=== PATIENT | female | born 1990 | race Caucasian/White ===

== ENCOUNTER 2021-05-05 14:20 | Emergency (ER) | payer OTHER, MEDICAID, SELFPAY ==
[2021-05-05] VITALS (10 sets, daily range): BP systolic 112–131; BP diastolic 63–77; PULSE 89–117; RESP 13–24; TEMP 37.2–39.2; O2SAT 98–100; BMI 23.0
--- NOTE | 2021-05-05 14:56 | DI.RAD.S_ITS ---
PROCEDURE: XR CHEST 1V INDICATIONS: suspected sepsis TECHNIQUE: One view of the chest was acquired. COMPARISON: None. FINDINGS: Surgical changes and devices: None. Lungs and pleura: Lungs are clear. No pleural effusions or pneumothorax. Mediastinum: Mediastinal contours appear normal. Heart size is normal. Bones and chest wall: No suspicious bony lesions. Overlying soft tissues appear unremarkable. IMPRESSION: No acute cardiopulmonary disease process. Dictated by: Melony Szymanski MD, PhD on 05/05/2021 at 15:28 Approved by: Melony Szymanski MD, PhD on 05/05/2021 at 15:28
[2021-05-05 15:29] LABS: Bacteria Urine Many (>30); RBC Urine 5-10/HPF (0-5/HPF); WBC Urine >100/HPF (0-5/HPF)
[2021-05-05 15:30] LABS: Culture Indicated Urine Specimen Cultured
[2021-05-05 15:31] LABS: Add Manual Diff / Slide Review NO; Basophils Absolute Auto 0 /uL (0-100); Basophils Percent Auto 0.1 % (0-2); Eosinophils Absolute Auto 0 /uL (0-450); Hematocrit 38.8 % (36-46); Hemoglobin 12.8 g/dL (12.0-16.0); Lymphocytes Absolute Auto 700 /uL (1100-4500); Lymphocytes Percent Auto 3.1 % (25-40); Mean Corpuscular HGB Conc 33.1 % (30-36); Mean Corpuscular Volume 84.5 fL (80-100); Monocytes Absolute Auto 800 /uL (0-900); Monocytes Percent Auto 3.6 % (3-14); Neutrophils Absolute Auto 19400 /uL (1500-7000); Neutrophils Percent Auto 93.2 % (50-75); Platelet Count 247 X10^3/uL (150-400); Red Blood Cell Count 4.59 X10^6/uL (4.0-5.2); Red Cell Distribution Width 13.2 % (11.6-14.8); White Blood Cell Count 20.9 X10^3/uL (4.5-11.0)
[2021-05-05 15:39] LABS: Alanine Aminotransferase 51 IU/L (<35); Albumin 4.6 g/dL (3.5-5.0); Albumin Globulin Ratio 1.4 (1.0-2.8); Alkaline Phosphatase 182 U/L (38-126); Aspartate Aminotransferase 70 IU/L (14-36); BUN Creatinine Ratio 13.1 (6-22); Bilirubin Total 0.9 mg/dL (0.2-1.3); Blood Urea Nitrogen 8 mg/dL (7-17); Calcium 9.3 mg/dL (8.4-10.2); Carbon Dioxide 25 mmol/L (22-32); Chloride 99 mmol/L (98-107); Estimated Glomerular Filt Rate > 60.0 mL/min (>60); Globulin 3.4 g/dL (1.7-4.1); Glucose 105 mg/dL (70-100); HEMOLYSIS < 15 (0-50); Lipase 27 U/L (23-300); Potassium 3.8 mmol/L (3.4-5.1); Sodium 133 mmol/L (137-145)
[2021-05-05 15:40] LABS: Lactate (Lactic Acid) 1.1 mmol/L (0.7-2.1)
[2021-05-05] MEDS: SODIUM CHLORIDE 0.9% 1,000 ML 1000 ML IV ×2 (15:40→17:09)
[2021-05-05] MEDS: ONDANSETRON 4 MG/2 ML INJ IV (15:57)
[2021-05-05 16:15] LABS: COVID19 -Nasal RAPID Negative (Negative)
--- NOTE | 2021-05-05 16:54 | ED.GENADULT ---
HPI - General Adult General Chief complaint: Abdominal Pain Stated complaint: abd pain x2days Time Seen by Provider: 05/05/21 15:30 Source: patient Mode of arrival: Ambulatory Limitations: no limitations History of Present Illness HPI narrative: 31-year-old woman with history of IV drug use complains of 48 hours of severe right lower quadrant pain as well as migraine that is been present all day. She has a history of chronic migraine. She notes that she has not had any abdominal surgery she is having severe right flank pain without dysuria. She has been having fevers and chills. Vomiting but no diarrhea. Headache consistent with migraine along with visual changes that she is so cm with her typical migraine. She describes no cough or palpitations. She has been more fatigued and generally feels unwell. Related Data Home Medications Medication Instructions Recorded Confirmed dextroamphetamine-amphetamine ER 60 mg PO QDAY #0 11/23/12 30 mg 24hr capsule,extend release (Adderall XR) clonazepam 0.5 mg tablet (Klonopin) 1 mg #0 06/06/13 Previous Rx's Medication Instructions Recorded amoxicillin 875 mg-potassium 1 tab PO BID #20 tab 05/05/21 clavulanate 125 mg tablet (Augmentin) Allergies Allergy/AdvReac Type Severity Reaction Status Date / Time No Known Drug Allergies Allergy Verified 05/05/21 14:42 Review of Systems Review of Systems Narrative: Remainder of complete review of systems is otherwise unremarkable except for that included in the HPI. Patient History Medical History IV drug user Pyelonephritis Social History Smoking Status: Current every day smoker Smoking Status: Current every day smoker tobacco type: vaping Substance Use Type: marijuana and heroin Exam Narrative Exam Narrative: General: Fatigued and acutely ill appearing but Able to give a complete and coherent history. HEENT: Moist mucous membranes, normal sclera with reactive pupils, Neck: No JVD, supple Respiratory: Lungs are clear to auscultation, no wheezing no rales no rhonchi. Full and symmetrical air movement Cardiac: Tachycardic but regular rate and rhythm no murmurs no bruits Abdomen: Soft, nontender, good bowel tones, significant right flank pain Skin: Pale, track joshi appreciated on arms no evidence of abscesses cellulitis or significant skin breakdown Neurologic: Grossly neurologically intact with no obvious asymmetries or abnormalities Extremities: No trauma, well perfused Psych: Cooperative, appropriate insight and affect Initial Vital Signs Initial Vital Signs: Vital Signs Temperature 102.5 F H 05/05/21 14:42 Pulse Rate 117 H 05/05/21 14:42 Respiratory Rate 20 05/05/21 14:42 Blood Pressure 124/77 05/05/21 14:42 Pulse Oximetry 98 05/05/21 14:42 Course Orders Ordered: ED Orders 05/05/21 14:56 XR chest 1V Stat EKG-12 Lead Stat 05/05/21 14:58 Urine Culture Stat Urine Microscopic Stat 05/05/21 15:24 Complete Blood Count AUTO DIFF Stat Comprehensive Metabolic Panel Stat Lactate (Lactic Acid) Stat Lipase Stat Procalcitonin Stat 05/05/21 15:47 Blood Culture Stat 05/05/21 15:58 COVID19 -Nasal swab/Pre-Proc Stat Hydromorphone HCl (Hydromorphone 1 Mg Inj) 1 mg IV NOW ONE Stop: 05/05/21 18:32 Discontinued Medications Acetaminophen (Acetaminophen 325 Mg Tablet) 975 mg PO NOW ONE Stop: 05/05/21 16:56 Last Admin: 05/05/21 17:09 Dose: 975 mg Documented by: BREANN Hydromorphone HCl (Hydromorphone 1 Mg Inj) 1 mg IV NOW ONE Stop: 05/05/21 17:07 Last Admin: 05/05/21 17:10 Dose: 1 mg Documented by: BREANN Sodium Chloride (Normal Saline 0.9%) 1,000 mls @ 1,000 mls/hr IV BOLUS ONE Stop: 05/05/21 15:55 Last Infusion: 05/05/21 17:09 Dose: 0 mls/hr Documented by: Admin: 05/05/21 15:40 Dose: 1,000 mls/hr Documented by: BREANN Sodium Chloride (Normal Saline 0.9%) 1,000 mls @ 1,000 mls/hr IV BOLUS ONE Stop: 05/05/21 17:54 Last Admin: 05/05/21 17:09 Dose: 1,000 mls/hr Documented by: BREANN Ceftriaxone Sodium 2,000 mg/ (Sodium Chloride) 100 mls @ 200 mls/hr IV NOW ONE Stop: 05/05/21 16:56 Last Infusion: 05/05/21 17:55 Dose: 0 mls/hr Documented by: Admin: 05/05/21 17:10 Dose: 200 mls/hr Documented by: BREANN Ketorolac Tromethamine (Ketorolac 30 Mg/Ml Vial) 15 mg IV NOW ONE Stop: 05/05/21 16:56 Last Admin: 05/05/21 17:10 Dose: 15 mg Documented by: BREANN Metoclopramide HCl (Metoclopramide 10 Mg/2 Ml Inj) 10 mg IV NOW ONE Stop: 05/05/21 16:56 Last Admin: 05/05/21 17:10 Dose: 10 mg Documented by: BREANN Ondansetron HCl (Ondansetron 4 Mg/2 Ml Inj) 4 mg IV NOW ONE Stop: 05/05/21 15:54 Last Admin: 05/05/21 15:57 Dose: 4 mg Documented by: BREANN Vital Signs Vital signs: Vital Signs - 8 hr 05/05/21 14:42 05/05/21 15:49 05/05/21 15:52 Temperature 102.5 F H Pulse Rate 117 H 98 H 99 H Respiratory Rate 20 14 Blood Pressure 124/77 121/73 Pulse Oximetry 98 100 100 05/05/21 16:00 05/05/21 16:30 05/05/21 17:00 Temperature Pulse Rate 93 H 89 95 H Respiratory Rate 13 21 24 Blood Pressure 114/66 121/75 131/75 Pulse Oximetry 100 100 98 Medical Decision Making Lab Data Result diagrams: 05/05/21 15:24 05/05/21 15:24 Labs: Lab Results 05/05/21 05/05/21 05/05/21 Range/Units 14:58 15:24 15:24 WBC 20.9 H (4.5-11.0) X10^3/uL RBC 4.59 (4.0-5.2) X10^6/uL Hgb 12.8 (12.0-16.0) g/dL Hct 38.8 (36-46) % MCV 84.5 (80-100) fL MCH 28.0 (26-34) PG MCHC 33.1 (30-36) % RDW 13.2 (11.6-14.8) % Plt Count 247 (150-400) X10^3/uL Neut % (Auto) 93.2 H (50-75) % Lymph % (Auto) 3.1 L (25-40) % [place] % (Auto) 3.6 (3-14) % Eos % (Auto) 0.0 L (2-4) % Baso % (Auto) 0.1 (0-2) % Neut # (Auto) 94999 H (7381-1931) /uL Lymph # (Auto) 700 L (8258-0000) /uL [place] # (Auto) 800 (0-900) /uL Eos # (Auto) 0 (0-450) /uL Baso # (Auto) 0 (0-100) /uL Sodium 133 L (137-145) mmol/L Potassium 3.8 (3.4-5.1) mmol/L Chloride 99 (98-107) mmol/L Carbon Dioxide 25 (22-32) mmol/L BUN 8 (7-17) mg/dL Creatinine 0.61 (0.52-1.04) mg/dL Estimated GFR > 60.0 (>60) mL/min BUN/Creatinine Ratio 13.1 (6-22) Glucose 105 H (70-100) mg/dL Lactate (0.7-2.1) mmol/L Calcium 9.3 (8.4-10.2) mg/dL Total Bilirubin 0.9 (0.2-1.3) mg/dL AST 70 H (14-36) IU/L ALT 51 H (<35) IU/L Alkaline Phosphatase 182 H (38-126) U/L Total Protein 8.0 (6.3-8.2) g/dL Albumin 4.6 (3.5-5.0) g/dL Globulin 3.4 (1.7-4.1) g/dL Albumin/Globulin Ratio 1.4 (1.0-2.8) Lipase 27 (23-300) U/L Procalcitonin 1.30 H (<0.5) ng/mL Urine RBC 5-10/hpf H (0-5/HPF) Urine WBC >100/hpf H (0-5/HPF) Urine Bacteria Many (>30) H (None) Ur Culture Indicated? Specimen cultured SARS-CoV-2 (PCR) (Negative) 05/05/21 05/05/21 Range/Units 15:24 15:58 WBC (4.5-11.0) X10^3/uL RBC (4.0-5.2) X10^6/uL Hgb (12.0-16.0) g/dL Hct (36-46) % MCV (80-100) fL MCH (26-34) PG MCHC (30-36) % RDW (11.6-14.8) % Plt Count (150-400) X10^3/uL Neut % (Auto) (50-75) % Lymph % (Auto) (25-40) % [place] % (Auto) (3-14) % Eos % (Auto) (2-4) % Baso % (Auto) (0-2) % Neut # (Auto) (9725-7170) /uL Lymph # (Auto) (3652-8614) /uL [place] # (Auto) (0-900) /uL Eos # (Auto) (0-450) /uL Baso # (Auto) (0-100) /uL Sodium (137-145) mmol/L Potassium (3.4-5.1) mmol/L Chloride (98-107) mmol/L Carbon Dioxide (22-32) mmol/L BUN (7-17) mg/dL Creatinine (0.52-1.04) mg/dL Estimated GFR (>60) mL/min BUN/Creatinine Ratio (6-22) Glucose (70-100) mg/dL Lactate 1.1 (0.7-2.1) mmol/L Calcium (8.4-10.2) mg/dL Total Bilirubin (0.2-1.3) mg/dL AST (14-36) IU/L ALT (<35) IU/L Alkaline Phosphatase (38-126) U/L Total Protein (6.3-8.2) g/dL Albumin (3.5-5.0) g/dL Globulin (1.7-4.1) g/dL Albumin/Globulin Ratio (1.0-2.8) Lipase (23-300) U/L Procalcitonin (<0.5) ng/mL Urine RBC (0-5/HPF) Urine WBC (0-5/HPF) Urine Bacteria (None) Ur Culture Indicated? SARS-CoV-2 (PCR) Negative (Negative) Point of Care Testing Test Results Negative Urine Dip Bedside Urine Glucose Negative Bedside Urine Bilirubin + 1 Bedside Urine Ketone +/- 5 Urine Specific [place] 1.020 Bedside Urine Occult Blood ++ Bedside Urine pH 6.0 Bedside Urine Protein +/- 15 Bedside Urine Urobilinogen +/- 1mg Bedside Urine Nitrite - Negative Bedside Urine Leukocytes ++ 125 Esterase Point of care testing: Point of Care Testing Test Results Negative Urine Dip Bedside Urine Glucose Negative Bedside Urine Bilirubin + 1 Bedside Urine Ketone +/- 5 Urine Specific [place] 1.020 Bedside Urine Occult Blood ++ Bedside Urine pH 6.0 Bedside Urine Protein +/- 15 Bedside Urine Urobilinogen +/- 1mg Bedside Urine Nitrite - Negative Bedside Urine Leukocytes ++ 125 Esterase Imaging Data Chest x-ray: Radiologist's Impression: FINDINGS: Surgical changes and devices: None. Lungs and pleura: Lungs are clear. No pleural effusions or pneumothorax. Mediastinum: Mediastinal contours appear normal. Heart size is normal. Bones and chest wall: No suspicious bony lesions. Overlying soft tissues appear unremarkable. IMPRESSION: No acute cardiopulmonary disease process. Dictated by: Melony Szymanski MD, PhD on 05/05/2021 at 15:28 MDM Narrative Medical decision making narrative: 31-year-old woman with acute pyelonephritis and no evidence of sepsis. She has no skin rashes or abscess. She does not have any spine tenderness to suggest epidural complications. No acute abdomen [place] [address] however lactic acid is normal in the 1.1 range. She is responding nicely to initial L of fluid, Toradol and Tylenol. Headache symptoms are resolving with all of those treatments in addition to Reglan. At this point, I think she is safe for home discharge. Will need to complete 10 days of Augmentin and we will contact her if this turns out to be an inadequate coverage for the bacteria growing from her urine. We briefly discussed her IV drug use. She has not successfully using Suboxone in the past. Strongly encouraged her to get back to Suboxone. She is safe for home discharge Discharge Plan Departure Patient Disposition: Home Clinical Impression: Pyelonephritis Instructions: DI for Kidney Infection Activity Restrictions/Additional Instructions: I am so glad that you came in today. You do have a severe kidney infection and I think that is what is triggering your recurrent migraine You were given fluids, Toradol, Tylenol as well as IV antibiotics to treat your headache and infection both. Kidney infections take a couple of days to truly begin to improve. You may have continued fevers for a couple of days and likely will have continued kidney pain as well. If things get worse you do need to return. Using 400 mg of ibuprofen (2 [id number] pills) and 1 Tylenol every 6 hours can be very helpful in controlling fevers and the kidney pain. We talked about your IV drug use as an increased risk for medical complications. Please consider getting back to ideal option and restarting your Suboxone. You deserve to have your life back. I wish you the best Prescriptions: New amoxicillin-pot clavulanate [Augmentin] 875-125 mg tablet 1 tab PO BID Qty: 20 RF: 0 No Action dextroamphetamine-amphetamine [Adderall XR] 30 MG capsule,extended release 24hr 60 mg PO QDAY Qty: 0 RF: 0 clonazepam [Klonopin] 0.5 MG tablet 1 mg Qty: 0 RF: 0
[2021-05-05] MEDS: ACETAMINOPHEN 325 MG TABLET 975 MG PO (17:09)
[2021-05-05] MEDS: KETOROLAC 30 MG/ML VIAL 15 MG IV (17:10)
[2021-05-05] MEDS: cefTRIAXone 2,000 MG in SODIUM CHLORIDE 0.9% 100 ML 200 ML IV (17:10)
[2021-05-05] MEDS: HYDROMORPHONE 1 MG INJ IV ×2 (17:10→18:55)
[2021-05-05] MEDS: METOCLOPRAMIDE 10 MG/2 ML INJ IV (17:10)
[2021-05-06 06:18] LABS: Acinetobacter baumannii Not Detected (Not Detect); Candida albicans Not Detected (Not Detect); Candida glabrata Not Detected (Not Detect); Candida krusei Not Detected (Not Detect); Candida parapsilosis Not Detected (Not Detect); Candida tropicalis Not Detected (Not Detect); E. coli Detected (Not Detect); Enterobacter cloacae complex Not Detected (Not Detect); Enterobacteriaceae species Detected (Not Detect); Enterococcus species Not Detected (Not Detect); Haemophilus influenzae Not Detected (Not Detect); KPC (carbapenem-resist gene) Not Detected (Not Detect); Listeria monocytogenes Not Detected (Not Detect); Neisseria meningitidis Not Detected (Not Detect); Proteus species Not Detected (Not Detect); Pseudomonas aeruginosa Not Detected (Not Detect); Serratia marcescens Not Detected (Not Detect); Staphylococcus species Not Detected (Not Detect); Streptococcus agalactiae (Gr B Not Detected (Not Detect); Streptococcus pneumonia Not Detected (Not Detect); Streptococcus pyogenes (Gr A) Not Detected (Not Detect); Streptococcus species Not Detected (Not Detect)
== END 2021-05-05 19:15 | disposition home or self-care (01) ==
PROVIDERS: Emergency Provider Emergency Medicine
DX: N12 Tubulo-interstitial nephritis, not specified as acute or chronic (principal); Z20.822 Contact with and (suspected) exposure to COVID-19
CPT/HCPCS: 36415; 71045; 80053; 81003; 81015; 81025; 83605; 83690; 84145; 85025; 87040; 87077; 87086; 87150; 87186; 87205; 87635; 93005; 96361; 96365; 96375; 96376; 99284; C9803; J0696; J1170; J1885; J2405; J2765

== ENCOUNTER 2021-05-06 15:55 | Emergency (ER) | payer OTHER, MEDICAID, SELFPAY ==
[2021-05-06 16:19] VITALS: BP 147/89; PULSE 54; RESP 16; TEMP 36.6; O2SAT 100
--- NOTE | 2021-05-06 16:24 | ED_ITS ---
HPI - Recheck/Abnormal Lab/Rx General Chief Complaint: Recheck/Abnormal Lab/Rx Stated Complaint: kidney infection, need antibiotics Time Seen by Provider: 05/06/21 16:19 History of Present Illness HPI narrative: 31-year-old woman with history of Of IV drug use was seen yesterday and diagnosed with pyelonephritis. She is not meeting sepsis criteria at that time and was given 2 g of ceftriaxone, Toradol for pain, fluids and discharged home with a prescription for amoxicillin. Blood cultures returned positive early this morning and message was left for her to come back in for further evaluation. She presents this afternoon actually looking significantly better than yesterday continues to complain of significant flank pain. One Blood culture is growing E coli as is urine. She states she still has a mild headache but is able to eat and drink at this time. No new findings. Related Data Home Medications Medication Instructions Recorded Confirmed dextroamphetamine-amphetamine ER 60 mg PO QDAY #0 11/23/12 30 mg 24hr capsule,extend release (Adderall XR) clonazepam 0.5 mg tablet (Klonopin) 1 mg #0 06/06/13 Previous Rx's Medication Instructions Recorded amoxicillin 875 mg-potassium 1 tab PO BID #20 tab 05/05/21 clavulanate 125 mg tablet (Augmentin) amoxicillin 875 mg-potassium 1 tab PO BID #20 tab 05/06/21 clavulanate 125 mg tablet (Augmentin) amoxicillin 875 mg-potassium 1 tab PO BID #20 tab 05/06/21 clavulanate 125 mg tablet (Augmentin) Allergies Allergy/AdvReac Type Severity Reaction Status Date / Time No Known Drug Allergies Allergy Verified 05/05/21 14:42 Review of Systems Review of Systems Narrative: Remainder of complete review of systems is otherwise unremarkable except for that included in the HPI. Patient History Medical History IV drug user Pyelonephritis Social History Smoking Status: Current every day smoker Smoking Status: Current every day smoker tobacco type: vaping Substance Use Type: marijuana and heroin Exam Narrative Exam Narrative: General: Appears moderately ill but not toxic and does look better than yesterday's presentation Neck: supple Respiratory: Lungs are clear to auscultation, no wheezing no rales no rhonchi. Full and symmetrical air movement Cardiac: Mild tachycardia but otherwise Regular rate and rhythm no murmurs no bruits Abdomen: Soft, nontender, good bowel tones, positive flank pain Skin: Warm and dry, no rashes Neurologic: Grossly neurologically intact with no obvious asymmetries or abnormalities Extremities: No trauma, well perfused Psych: Cooperative, appropriate insight and affect Initial Vital Signs Initial Vital Signs: Vital Signs Temperature 97.8 F 05/06/21 16:19 Pulse Rate 54 L 05/06/21 16:19 Respiratory Rate 16 05/06/21 16:19 Blood Pressure 147/89 H 05/06/21 16:19 Pulse Oximetry 100 05/06/21 16:19 Course Orders Ordered: ED Orders 05/06/21 16:55 Complete Blood Count AUTO DIFF Stat Comprehensive Metabolic Panel Stat Lactate (Lactic Acid) Stat Discontinued Medications Sodium Chloride (Normal Saline 0.9%) 1,000 mls @ 1,000 mls/hr IV BOLUS ONE Stop: 05/06/21 17:18 Last Admin: 05/06/21 17:15 Dose: 1,000 mls/hr Documented by: POLO Ceftriaxone Sodium 2,000 mg/ (Sodium Chloride) 100 mls @ 200 mls/hr IV NOW ONE Stop: 05/06/21 16:20 Last Admin: 05/06/21 17:15 Dose: 200 mls/hr Documented by: POLO Ketorolac Tromethamine (Ketorolac 30 Mg/Ml Vial) 15 mg IV NOW ONE Stop: 05/06/21 16:25 Last Admin: 05/06/21 17:06 Dose: 15 mg Documented by: POLO Vital Signs Vital signs: Vital Signs - 8 hr 05/06/21 16:19 Temperature 97.8 F Pulse Rate 54 L Respiratory Rate 16 Blood Pressure 147/89 H Pulse Oximetry 100 MDM - Recheck/Abnormal Lab/Rx Lab Data Result diagrams: 05/06/21 16:55 05/06/21 16:55 Labs: Lab Results 05/06/21 05/06/21 05/06/21 Range/Units 16:55 16:55 16:55 WBC 18.4 H (4.5-11.0) X10^3/uL RBC 4.06 (4.0-5.2) X10^6/uL Hgb 11.0 L (12.0-16.0) g/dL Hct 34.5 L (36-46) % MCV 84.9 (80-100) fL MCH 27.1 (26-34) PG MCHC 31.9 (30-36) % RDW 13.4 (11.6-14.8) % Plt Count 206 (150-400) X10^3/uL Neut % (Auto) 88.0 H (50-75) % Lymph % (Auto) 6.8 L (25-40) % [place] % (Auto) 5.0 (3-14) % Eos % (Auto) 0.0 L (2-4) % Baso % (Auto) 0.2 (0-2) % Neut # (Auto) 01838 H (0152-4277) /uL Lymph # (Auto) 1300 (0537-9288) /uL [place] # (Auto) 900 (0-900) /uL Eos # (Auto) 0 (0-450) /uL Baso # (Auto) 0 (0-100) /uL Sodium 134 L (137-145) mmol/L Potassium 3.9 (3.4-5.1) mmol/L Chloride 99 (98-107) mmol/L Carbon Dioxide 28 (22-32) mmol/L BUN 9 (7-17) mg/dL Creatinine 0.57 (0.52-1.04) mg/dL Estimated GFR > 60.0 (>60) mL/min BUN/Creatinine Ratio 15.8 (6-22) Glucose 112 H (70-100) mg/dL Lactate 1.4 (0.7-2.1) mmol/L Calcium 8.5 (8.4-10.2) mg/dL Total Bilirubin 0.5 (0.2-1.3) mg/dL AST 37 H (14-36) IU/L ALT 35 H (<35) IU/L Alkaline Phosphatase 168 H (38-126) U/L Total Protein 6.7 (6.3-8.2) g/dL Albumin 3.5 (3.5-5.0) g/dL Globulin 3.2 (1.7-4.1) g/dL Albumin/Globulin Ratio 1.1 (1.0-2.8) MDM Narrative Medical decision making narrative: 31-year-old woman with pyelonephritis and E coli positive blood culture. No evidence of sepsis yesterday and returns today for 2nd dose of IV ceftriaxone with continued lack of evidence for sepsis. She clearly is improving as of today. She is given an additional L of fluid, 2 g of ceftriaxone pain is improved slightly with Toradol. We discussed options and together chose home discharge. She misplaced her amoxicillin prescription from yesterday's visit is replaced today. She is alert appropriate and making rational decisions. She is safe for home discharge at this time. Discharge Plan Departure Patient Disposition: Home Clinical Impression: Pyelonephritis, Blood bacterial culture positive, E coli bacteremia Activity Restrictions/Additional Instructions: Thank you for coming back today You received another dose of IV antibiotics. This antibiotic should be effective in treating your kidney infection with bacteria in your blood stream. You are not showing any signs of sepsis. I have electronically sent a prescription for Augmentin to [facility] in [place] and have given you a written prescription as well. It is very important that you fill this and complete the entire course If you find that you are worse, having new symptoms or something has changed, please return to the ER Prescriptions: New amoxicillin-pot clavulanate [Augmentin] 875-125 mg tablet 1 tab PO BID Qty: 20 RF: 0 amoxicillin-pot clavulanate [Augmentin] 875-125 mg tablet 1 tab PO BID Qty: 20 RF: 0 No Action dextroamphetamine-amphetamine [Adderall XR] 30 MG capsule,extended release 24hr 60 mg PO QDAY Qty: 0 RF: 0 clonazepam [Klonopin] 0.5 MG tablet 1 mg Qty: 0 RF: 0 amoxicillin-pot clavulanate [Augmentin] 875-125 mg tablet 1 tab PO BID Qty: 20 RF: 0
[2021-05-06 17:05] LABS: Add Manual Diff / Slide Review NO; Basophils Absolute Auto 0 /uL (0-100); Basophils Percent Auto 0.2 % (0-2); Eosinophils Absolute Auto 0 /uL (0-450); Hematocrit 34.5 % (36-46); Lymphocytes Absolute Auto 1300 /uL (1100-4500); Lymphocytes Percent Auto 6.8 % (25-40); Mean Corpuscular HGB Conc 31.9 % (30-36); Mean Corpuscular Hemoglobin 27.1 PG (26-34); Mean Corpuscular Volume 84.9 fL (80-100); Monocytes Absolute Auto 900 /uL (0-900); Neutrophils Absolute Auto 16200 /uL (1500-7000); Platelet Count 206 X10^3/uL (150-400); Red Blood Cell Count 4.06 X10^6/uL (4.0-5.2); Red Cell Distribution Width 13.4 % (11.6-14.8); White Blood Cell Count 18.4 X10^3/uL (4.5-11.0)
[2021-05-06] MEDS: KETOROLAC 30 MG/ML VIAL 15 MG IV (17:06)
[2021-05-06] MEDS: cefTRIAXone 2,000 MG in SODIUM CHLORIDE 0.9% 100 ML 200 ML IV (17:15)
[2021-05-06] MEDS: SODIUM CHLORIDE 0.9% 1,000 ML 1000 ML IV (17:15)
[2021-05-06 17:28] LABS: Lactate (Lactic Acid) 1.4 mmol/L (0.7-2.1)
[2021-05-06 17:29] LABS: Alanine Aminotransferase 35 IU/L (<35); Albumin 3.5 g/dL (3.5-5.0); Albumin Globulin Ratio 1.1 (1.0-2.8); Alkaline Phosphatase 168 U/L (38-126); Aspartate Aminotransferase 37 IU/L (14-36); BUN Creatinine Ratio 15.8 (6-22); Bilirubin Total 0.5 mg/dL (0.2-1.3); Blood Urea Nitrogen 9 mg/dL (7-17); Calcium 8.5 mg/dL (8.4-10.2); Carbon Dioxide 28 mmol/L (22-32); Chloride 99 mmol/L (98-107); Estimated Glomerular Filt Rate > 60.0 mL/min (>60); Globulin 3.2 g/dL (1.7-4.1); Glucose 112 mg/dL (70-100); HEMOLYSIS < 15 (0-50); Potassium 3.9 mmol/L (3.4-5.1); Sodium 134 mmol/L (137-145); Total Protein 6.7 g/dL (6.3-8.2)
[2021-05-06 18:16] VITALS: BP 102/64; PULSE 67; RESP 18; O2SAT 100
[2021-05-06 18:39] VITALS: BP 102/62; PULSE 69; RESP 18; O2SAT 100
== END 2021-05-06 18:46 | disposition home or self-care (01) ==
PROVIDERS: Emergency Provider Emergency Medicine
DX: N12 Tubulo-interstitial nephritis, not specified as acute or chronic (principal); R78.81 Bacteremia
CPT/HCPCS: 36415; 80053; 83605; 85025; 96361; 96365; 96375; 99284; J0696; J1885

== ENCOUNTER 2024-01-10 07:14 | Emergency (ER) | payer OTHER, MEDICAID, SELFPAY ==
[2024-01-10 07:19] VITALS: BP 134/77; PULSE 80; RESP 18; TEMP 36.3; O2SAT 97; BMI 23.0
--- NOTE | 2024-01-10 07:35 | ED.GENADULT ---
HPI - General Adult General Chief complaint: Urogenital-Female Stated complaint: wants to talk to nurse Time Seen by Provider: 01/10/24 07:23 Source: patient Mode of arrival: Ambulatory History of Present Illness HPI narrative: 33-year-old female. Here for evaluation of what she thinks is potentially a sexually transmitted infection. States she was having some foul-smelling vaginal discharge. She was also having some lower abdominal pain. She has had an STI in the past. Has had herpes. She states that this does not feel like herpes outbreak. No fevers. No urinary symptoms. She has had unprotected sexual intercourse within the past month. She was also treated for GI worms. She is homeless and lives in her car. Related Data Home Medications Medication Instructions Recorded Confirmed dextroamphetamine-amphetamine ER 60 mg PO QDAY ##0 11/23/12 30 mg 24hr capsule,extend release (Adderall XR) clonazepam 0.5 mg tablet (Klonopin) 1 mg ##0 06/06/13 Previous Rx's Medication Instructions Recorded amoxicillin 875 mg-potassium 1 tab PO BID #20 tabs 05/05/21 clavulanate 125 mg tablet (Augmentin) amoxicillin 875 mg-potassium 1 tab PO BID #20 tabs 05/06/21 clavulanate 125 mg tablet (Augmentin) amoxicillin 875 mg-potassium 1 tab PO BID #20 tabs 05/06/21 clavulanate 125 mg tablet (Augmentin) Allergies Allergy/AdvReac Type Severity Reaction Status Date / Time No Known Drug Allergies Allergy Verified 05/05/21 14:42 Review of Systems Constitutional Constitutional: Reports system reviewed and no additional complaints, except as documented Gastrointestinal Gastrointestinal: Reports system reviewed and no additional complaints, except as documented Genitourinary Genitourinary: Reports system reviewed and no additional complaints, except as documented Integumentary/Breasts Skin/Breast: Reports system reviewed and no additional complaints, except as documented Neurologic Neurologic: Reports system reviewed and no additional complaints, except as documented Patient History Medical History Pyelonephritis IV drug user Social History Smoking Status: Current every day smoker Smoking Status: Current every day smoker tobacco type: vaping Substance Use Type: marijuana, heroin and opiates Exam Initial Vital Signs Initial Vital Signs: Vital Signs Temperature 97.3 F L 01/10/24 07:19 Pulse Rate 80 01/10/24 07:19 Respiratory Rate 18 01/10/24 07:19 Blood Pressure 134/77 01/10/24 07:19 Pulse Oximetry 97 01/10/24 07:19 Oxygen Delivery Method Room Air 01/10/24 07:19 [facility] Head: normal to inspection Resp Effort & Inspection: normal respiratory effort Auscultation: clear to auscultation bilaterally Cardio Rate: regular rate Rhythm: regular rhythm GI Inspection: normal to inspection External Female Exam: normal external appearance, no erythema and no lesions Speculum Exam - Vagina: normal appearance of the vagina, not erythematous, no lacerations, no lesions and No vaginal bleeding Speculum Exam - Cervix: normal appearance of the cervix OB/External & Speculum: No vaginal bleeding Other: RENZO Lares as standby Neuro General: patient alert and patient awake Course Orders Ordered: ED Orders 01/10/24 07:22 Consult to QUALITY CONTROL REPRESENTATIVE - Flat [employer] Maker Stat 01/10/24 07:35 Chlamydia Gonorrhea PCR -URINE Stat Ictotest Urine Stat Urine Microscopic Stat 01/10/24 08:00 SEAMUS Prep Stat Wet Prep Tric BV Tri Stat Discontinued Medications Metronidazole (Metronidazole 500 Mg Tablet) 2,000 mg PO NOW ONE Stop: 01/10/24 08:50 Last Admin: 01/10/24 09:12 Dose: 2,000 mg Documented By: VERNON Vital Signs Vital signs: Vital Signs - 8 hr 01/10/24 07:19 Temperature 97.3 F L Pulse Rate 80 Respiratory Rate 18 Blood Pressure 134/77 Pulse Oximetry 97 Oxygen Delivery Method Room Air Medical Decision Making Lab Data Lab results reviewed: Yes I reviewed the patient's lab results. Labs: Lab Results 01/10/24 Range/Units 07:35 Ur Bilirubin Confirm Negative (Negative) Urine RBC 0-1/hpf (0-5/HPF) Urine WBC 1-5/hpf (0-5/HPF) Ur Squamous Epith Cells 1-5 /hpf (0-5/HPF) Urine Bacteria Few (2-10) H (None) Urine Mucus 3+ H (Negative) Ur Culture Indicated? Cult not indicated Vol Urine Centrifuged 10ml (spun) Ur Chlamydia DNA (PCR) Not detected N gonorrhoeae DNA (PCR) Not detected Point of Care Testing Test Results Negative Urine Dip Bedside Urine Glucose Negative Bedside Urine Bilirubin + 1 Bedside Urine Ketone ++ 40 Urine Specific [place] 1.030 Bedside Urine Occult Blood - Negative Bedside Urine pH 5.5 Bedside Urine Protein +/- 15 Bedside Urine Urobilinogen - Negative Bedside Urine Nitrite - Negative Bedside Urine Leukocytes - Negative Esterase Point of care testing: Point of Care Testing Test Results Negative Urine Dip Bedside Urine Glucose Negative Bedside Urine Bilirubin + 1 Bedside Urine Ketone ++ 40 Urine Specific [place] 1.030 Bedside Urine Occult Blood - Negative Bedside Urine pH 5.5 Bedside Urine Protein +/- 15 Bedside Urine Urobilinogen - Negative Bedside Urine Nitrite - Negative Bedside Urine Leukocytes - Negative Esterase MDM Narrative Medical decision making narrative: Patient is positive for Trichomonas and she was treated with Flagyl here in the ER. The rest of her gonorrhea and chlamydia tests are negative. Will discharge patient home with return precautions Discharge Plan Departure Patient Disposition: Home Clinical Impression: Trichomoniasis Instructions: DI for Trichomoniasis Activity Restrictions/Additional Instructions: Your swabs today were positive for Trichomonas however you received the full treatment today here in the ER. Your gonorrhea and chlamydia tests were negative. Contact your primary doctor for a follow-up. I would recommend that you contact all recent sexual partners to let them know of your positive result today so that they can be evaluated and treated. Prescriptions: No Action dextroamphetamine-amphetamine [Adderall XR] 30 MG capsule,extended release 24hr 60 mg PO QDAY Qty: 0 clonazepam [Klonopin] 0.5 MG tablet 1 mg Qty: 0 amoxicillin-pot clavulanate [Augmentin] 875-125 mg tablet 1 tab PO BID Qty: 20 0RF amoxicillin-pot clavulanate [Augmentin] 875-125 mg tablet 1 tab PO BID Qty: 20 0RF amoxicillin-pot clavulanate [Augmentin] 875-125 mg tablet 1 tab PO BID Qty: 20 0RF Stand Alone Forms: Patient Portal/API
[2024-01-10 07:47] LABS: Ictotest Urine Negative (Negative)
[2024-01-10 07:55] LABS: Urine Volume 10mL (spun)
[2024-01-10 07:56] LABS: Bacteria Urine Few (2-10); Culture Indicated Urine Cult Not Indicated; Mucus Urine 3+ (Negative); RBC Urine 0-1/HPF (0-5/HPF); Squamous Epithelial Cell Urine 1-5 /HPF (0-5/HPF); WBC Urine 1-5/HPF (0-5/HPF)
[2024-01-10 09:09] LABS: Urine N gonorrhoeae NOT DETECTED
[2024-01-10 09:10] LABS: Urine Chlamydia NOT DETECTED
[2024-01-10] MEDS: metroNIDAZOLE 500 MG TABLET 2000 MG PO (09:12)
[2024-01-10 09:39] VITALS: BP 113/60; PULSE 96; RESP 18; O2SAT 100
== END 2024-01-10 09:40 | disposition home or self-care (01) ==
PROVIDERS: Emergency Provider Emergency Medicine
DX: A59.9 Trichomoniasis, unspecified (principal)
CPT/HCPCS: 81003; 81015; 81025; 87210; 87220; 87491; 87591; 99283